=== PATIENT | male | born 1955 | race Caucasian/White ===

== ENCOUNTER 2023-05-23 08:49 | Day surgery (SDC) | payer BC ==
[~2023-05-23] VITALS: Ht 172.7 cm; Wt 84.0 kg
[2023-05-23] VITALS (9 sets, daily range): BP systolic 126–166; BP diastolic 69–88; PULSE 77–88; RESP 12–17; TEMP 98.3; O2SAT 94–99
[2023-05-23] MEDS ORDERED: ESOM40CA54 PO (10:00)
[2023-05-23] MEDS ORDERED: LOSA50TA64 PO (10:00)
[2023-05-23] MEDS ORDERED: TADA2.5T3 PO (10:00)
[2023-05-23] MEDS ORDERED: SEMA1PEN3 SQ (10:00)
[2023-05-23] MEDS ORDERED: GLIM4TAB7 PO (10:09)
[2023-05-23] MEDS ORDERED: ALBU90AE INH (10:09)
[2023-05-23] MEDS ORDERED: INSU100I29 SQ (10:09)
[2023-05-23] MEDS ORDERED: BUDE0.5A3 NEB (10:09)
[2023-05-23] MEDS ORDERED: ATOR40TA72 PO (10:09)
[2023-05-23] MEDS ORDERED: METF-900 PO (10:09)
[2023-05-23] MEDS ORDERED: METO-384 PO (10:09)
[2023-05-23] MEDS ORDERED: DAPA10TA PO (10:09)
[2023-05-23] MEDS ORDERED: FAMO-129 PO (10:09)
[2023-05-23] MEDS ORDERED: AZEL137S4 BOTHNARES (10:09)
[2023-05-23] MEDS ORDERED: ASPI81TA52 PO (10:09)
[2023-05-23] MEDS ORDERED: MONT-40 PO (10:09)
[2023-05-23 11:05] LABS: PROTHROMBIN TIME 11.2 SECONDS (9.0-12.0)
[2023-05-23 11:13] LABS: BASOPHILS % (AUTO) 0.3 % (0-1); EOSINOPHILS # (AUTO) 0.1 X10'3 (0-0.9); EOSINOPHILS % (AUTO) 1.4 % (0-6); HEMATOCRIT 40.7 % (42.0-52.0); HEMOGLOBIN 13.4 g/dl (14.0-17.9); LYMPHOCYTES # (AUTO) 1.4 X10'3 (1.1-4.8); LYMPHOCYTES % (AUTO) 21.8 % (21-51); MEAN CORPUSCULAR HGB CONC 32.9 g/dL (33.0-36.5); MEAN CORPUSCULAR VOLUME 88.3 FL (78-98); MEAN PLATELET VOLUME 7.9 FL (7.4-10.4); MONOCYTES # (AUTO) 0.6 X10'3 (0-0.9); MONOCYTES % (AUTO) 8.8 % (2-12); NEUTROPHILS # (AUTO) 4.3 X10'3 (1.8-7.7); NEUTROPHILS % (AUTO) 67.7 % (42-75); PLATELET COUNT 174 X10'3 (140-440); RED BLOOD COUNT 4.61 X10'6 (4.70-6.10); RED CELL DISTRIBUTION WIDTH 14.4 % (11.5-14.5); WHITE BLOOD COUNT 6.4 X10'3 (4.5-11.0)
[2023-05-23 11:51] LABS: ALBUMIN 3.5 G/DL (3.4-5.0); ANION GAP 8 (8-16); BLOOD UREA NITROGEN 13 MG/DL (7-18); BUN/CREATININE RATIO 19.7 (10.0-20.0); CALCIUM 8.1 MG/DL (8.5-10.1); CHLORIDE 108 MMOL/L (99-107); CREATININE 0.66 MG/DL (0.60-1.10); GLUCOSE 127 MG/DL (70-104); MAGNESIUM 2.1 MG/DL (1.5-2.4); POTASSIUM 3.9 MMOL/L (3.5-5.1); SODIUM 143 MMOL/L (135-145); TOTAL CARBON DIOXIDE 26.9 MMOL/L (24-32); eCRCL 104 ML/MIN; eGFR > 90 ML/MIN
[2023-05-23] MEDS: sodium bicarbonate 1meq/ml syr 150 ML in dextrose 5%-water 1,000 ML IV ONE (12:54)
[2023-05-23] MEDS: diphenhydrAMINE 25mg capsule PO PRN (12:54)
[2023-05-23] MEDS: normal saline 1,000 ML IV SCH (12:54)
[2023-05-23] MEDS ORDERED: LIDOcaine 1% (10mg/ml) 2ml vial ONE (13:32)
[2023-05-23] MEDS ORDERED: verapamil 2.5 mg/ml inj IV ONE (13:32)
[2023-05-23] MEDS ORDERED: LIDOcaine 1% 30ml preserv. free vial ONE (13:32)
[2023-05-23] MEDS ORDERED: heparin 1,000unit/ml 10ml vial 10 ML ONE (13:33)
[2023-05-23] MEDS ORDERED: iohexol 350 MG/ML 50ML vial IV ONE ×3 (13:33→14:32)
[2023-05-23] MEDS ORDERED: fentaNYL/PF 50MCG/1 ML 2ML syringe ONE ×3 (13:33→14:48)
[2023-05-23] MEDS ORDERED: iohexol 350MG/ML 100ml bottle IV ONE (13:33)
[2023-05-23] MEDS ORDERED: nitroGLYCERIN 500mcg/5mL D5W 5 ML IV ONE (13:33)
[2023-05-23] MEDS ORDERED: midazolam 1 mg/ML 2ml injection ONE ×4 (13:33→14:48)
[2023-05-23] MEDS ORDERED: ondansetron/PF 4mg/2ml inj IV PRN (15:35)
[2023-05-23] MEDS ORDERED: HYDROcodone/acetaminophen 10/325mg tab PO PRN (15:35)
[2023-05-23] MEDS ORDERED: proCHLORperazine 10 MG/2 ml inj IV PRN (15:35)
[2023-05-23] MEDS: clopidogrel 300mg tablet PO STA (15:46)
[2023-05-23] MEDS: HYDROcodone/acetaminophen 5mg/325mg tablet PO PRN (18:10)
== END 2023-05-23 18:50 | disposition home or self-care (01) ==
LOC: CATH LAB 08:49 → SSTAY O 18:50
PROVIDERS: ATTEND Internal Medicine Cardiovascular Disease
DX: I25.118 Atherosclerotic heart disease of native coronary artery with other forms of angina pectoris (principal); E78.5 Hyperlipidemia, unspecified; E11.9 Type 2 diabetes mellitus without complications; K21.9 Gastro-esophageal reflux disease without esophagitis; I10 Essential (primary) hypertension; Z95.5 Presence of coronary angioplasty implant and graft; Z79.899 Other long term (current) drug therapy; Z79.84 Long term (current) use of oral hypoglycemic drugs; Z88.5 Allergy status to narcotic agent; Z88.8 Allergy status to other drugs, medicaments and biological substances; Z88.2 Allergy status to sulfonamides
CPT/HCPCS: 36415; 80048; 82948; 83735; 85025; 85610; 92920; 93005; 93458; 99152; 99153; A6258; C1874; C9600; J1644; J2250; J3010; J3490; J7030; J7070; Q0163; Q9967; 96360; A6402; C1725; C1751; C1769; C1894; C9601

== ENCOUNTER 2024-09-20 06:46 | Day surgery (SDC) | payer BC ==
[2024-09-20] VITALS (9 sets, daily range): BP systolic 112–153; BP diastolic 60–83; PULSE 86–95; RESP 11–15; O2SAT 93–99
[~2024-09-20] VITALS: Ht 172.7 cm; Wt 84.8 kg
[~2024-09-20 06:46] MED LIST: ALBU90AE INH; ASPI81TA52 PO; ATOR40TA72 PO; AZEL137S4 BOTHNARES; BUDE0.5A3 NEB; DAPA10TA PO; ESOM40CA66 PO; FAMO-129 PO; GLIM4TAB7 PO; INSU100I29 SQ; LOSA50TA64 PO; METF-900 PO; METO-384 PO; MONT-40 PO; SEMA1PEN3 SQ; [UNRECOGNIZED DRUG - CODE] PO
--- NOTE | 2024-09-20 07:17 | ELECTROCARDIOGRAPH REPORT ---
[facility] Test Date: 2024-09-20 Test Time: 07:15:26 Pat Name: NEREIDA SCHMIDT Department: [facility] Patient ID: [id number] Room: Gender: M Electronic Publications Specialist: ALEXANDREA : 1955 Requested By: STACIA VILLAGRAN Order Number: [id number] Reading MD: Dr. CHEYENNE Ibarra Measurements Intervals [place] Rate: 71 P: 40 MD: 210 QRS: 37 QRSD: 86 T: 42 QT: 382 QTc: 416 Interpretive Statements Sinus rhythm Electronically Signed On 09-20-2024 9:13:[address] CHEYENNE Ibarra Please click the below link to view image of tracing.
[2024-09-20] MEDS ORDERED: METO-384 PO (07:27)
[2024-09-20] MEDS ORDERED: LOSA-416 PO (07:27)
[2024-09-20] MEDS ORDERED: [UNRECOGNIZED DRUG - CODE] PO (07:31)
[2024-09-20] MEDS ORDERED: ATRNS BOTHNARES (07:31)
[2024-09-20] MEDS ORDERED: TIRZ5PEN INJ (07:31)
[2024-09-20] MEDS ORDERED: PREG75CA76 PO (07:31)
[2024-09-20] MEDS ORDERED: DOCU100C40 PO (07:36)
[2024-09-20] MEDS ORDERED: ADMELOG (07:36)
[2024-09-20] MEDS ORDERED: DENO60DI SUBCUT (07:36)
[2024-09-20 08:12] LABS: BASOPHILS % (AUTO) 0.4 % (0-1); EOSINOPHILS # (AUTO) 0.1 X10'3 (0-0.9); EOSINOPHILS % (AUTO) 2.5 % (0-6); HEMATOCRIT 41.8 % (42.0-52.0); HEMOGLOBIN 13.6 g/dl (14.0-17.9); LYMPHOCYTES # (AUTO) 1.6 X10'3 (1.1-4.8); MEAN CORPUSCULAR HEMOGLOBIN 27.1 PG (27.0-31.0); MEAN CORPUSCULAR HGB CONC 32.6 g/dL (33.0-36.5); MEAN CORPUSCULAR VOLUME 83.1 FL (78-98); MEAN PLATELET VOLUME 7.5 FL (7.4-10.4); MONOCYTES # (AUTO) 0.6 X10'3 (0-0.9); MONOCYTES % (AUTO) 10.4 % (2-12); NEUTROPHILS # (AUTO) 3.6 X10'3 (1.8-7.7); NEUTROPHILS % (AUTO) 60.7 % (42-75); PLATELET COUNT 193 X10'3 (140-440); RED BLOOD COUNT 5.03 X10'6 (4.70-6.10); RED CELL DISTRIBUTION WIDTH 16.2 % (11.5-14.5)
[2024-09-20 08:20] LABS: ALBUMIN 3.8 G/DL (3.4-5.0); ANION GAP 6 (8-16); BLOOD UREA NITROGEN 11 MG/DL (7-18); BUN/CREATININE RATIO 12.6 (10.0-20.0); CALCIUM 8.7 MG/DL (8.5-10.1); CHLORIDE 107 MMOL/L (99-107); CREATININE 0.87 MG/DL (0.60-1.10); GLUCOSE 141 MG/DL (70-104); MAGNESIUM 2.5 MG/DL (1.5-2.4); POTASSIUM 3.9 MMOL/L (3.5-5.1); SODIUM 140 MMOL/L (135-145); TOTAL CARBON DIOXIDE 26.9 MMOL/L (24-32); eCRCL 76 ML/MIN; eGFR 87 ML/MIN
[2024-09-20 08:23] LABS: PROTHROMBIN TIME 10.6 SECONDS (9.0-12.0)
[2024-09-20] MEDS ORDERED: verapamil 2.5 mg/ml inj IV ONE (08:27)
[2024-09-20] MEDS ORDERED: fentaNYL/PF 50MCG/1 ML 2ML syringe ONE (08:27)
[2024-09-20] MEDS ORDERED: LIDOcaine 1% (10mg/ml) 2ml vial ONE (08:27)
[2024-09-20] MEDS ORDERED: iohexol 350 MG/ML 50ML vial IV ONE (08:27)
[2024-09-20] MEDS ORDERED: midazolam 1 mg/ML 2ml injection ONE ×3 (08:27→10:04)
[2024-09-20] MEDS ORDERED: iohexol 350MG/ML 100ml bottle IV ONE (08:28)
[2024-09-20] MEDS ORDERED: heparin 1,000unit/ml 10ml vial 10 ML ONE (08:28)
[2024-09-20] MEDS ORDERED: nitroGLYCERIN 500mcg/5mL D5W 5 ML IV ONE (08:37)
[2024-09-20] MEDS ORDERED: LIDOcaine 1% 30ml preserv. free vial ONE (09:13)
[2024-09-20] MEDS: normal saline 1,000 ML IV SCH (09:28)
[2024-09-20] MEDS: diphenhydrAMINE 25mg capsule PO PRN (09:28)
[2024-09-20] MEDS: sodium bicarbonate 1meq/ml syr 150 ML in dextrose 5%-water 1,000 ML IV ONE (09:28)
--- NOTE | 2024-09-20 10:03 | VASCULAR REPORT ---
Right lower extremity venous duplex Clinical History: Pain, swelling Comparison: None Technique: Duplex Doppler evaluation of the deep venous system of the right lower extremity from the common femo ral vein to the popliteal vein including color Doppler and spectral/pulsed waveform analysis was perf ormed. Findings: The common femoral vein demonstrates appropriate compressibility and waveform variability. There is compressibility/patency of the great saphenous vein at the proximal thigh. The femoral vein demonstrates appropriate compressibility and waveform variability. The deep femoral vein demonstrates appropriate compressibility and waveform variability. The popliteal vein demonstrates appropriate compressibility and waveform variability. There is normal compressibility at the tibioperoneal trunk. Impression: No right femoropopliteal venous thrombosis. Contralateral common femoral vein is patent.
--- NOTE | 2024-09-20 11:13 | CARDIOLOGY REPORT ---
DATE OF SERVICE: 09/20/2024 DICTATING PHYSICIAN: STACIA VILLAGRAN DO CARDIAC CATHETERIZATION REPORT REFERRING PHYSICIAN: Jo Vargas MD. CLINICAL HISTORY: This 69-year-old man is status post mid RCA stenting in 2019 and circumflex coronary stenting in 2023. He is having recurring episodes of chest pain, suggestive of angina. Symptoms have occurred at rest. PROCEDURES PERFORMED: * Left heart catheterization. * Left ventriculography. * Selective coronary arteriography. * Percutaneous arteriotomy closure (Perclose). * A 30-minute conscious sedation and supervision. * Incidentally Perclose. DESCRIPTION OF PROCEDURE: The patient was sedated with fentanyl and Versed. He was then prepared and draped in the usual manner. The right inguinal area was infiltrated with 1% lidocaine. Using a micropuncture set and a Seldinger technique, a 7-Chadian sheath was placed in the common femoral artery, 3,000 units of heparin were given. Left heart catheterization and left ventriculography were performed using a 6-Chadian pigtail catheter. Coronary arteriography was performed using a 6-Chadian #4 left Edilson catheter for the left coronary artery and a 6-Chadian AR2 catheter for the right coronary artery. The arterial puncture site was successfully Perclosed. RESULTS: HEMODYNAMIC DATA: The left ventricular end diastolic pressure was 13 mmHg. There was no significant gradient across the aortic valve. LEFT VENTRICULOGRAM: The left ventriculogram was technically satisfactory. The ejection fraction was at least 70%. A stent was visible in the main stem circumflex and in the mid right coronary. There was also moderate calcification in the proximal and mid LAD. LEFT MAIN CORONARY ARTERY: The left main was a large short vessel immediately bifurcating into left anterior descending and circumflex coronary arteries. LEFT ANTERIOR DESCENDING CORONARY ARTERY: The LAD was a medium-sized vessel with a transapical distribution. The more distal two-thirds was somewhat small in size, being no more than about 2 mm in diameter at most. There was a single medium to large diagonal that was bifurcated and took its origin from the mid LAD. The mid LAD contained about a 30-40% area of narrowing, but there were no high-grade stenoses in this vessel. CIRCUMFLEX CORONARY ARTERY: The circumflex was a large main stem vessel. There was a very small first and second obtuse marginal branches. The first obtuse marginal appeared to be narrowed by at least 80%, but its diameter is well below 2 mm in diameter. There was a large posterolateral branch. There were no obstructive lesions elsewhere in the circumflex other than the origin of very small caliber first obtuse marginal. RIGHT CORONARY ARTERY: The right coronary artery was a medium to large main stem vessel. There was a medium-sized posterior descending branch, a small first posterolateral, a small to medium-sized second posterolateral, and a small third posterolateral. A stent in the mid right coronary was widely patent and there were no new obstructive lesions in the right coronary artery. CONCLUSIONS: * No significant obstructive coronary artery disease; however, there is an 80% stenosis at the origin of an extremely small caliber first obtuse marginal branch of the circumflex. * A 30-40% mid LAD in a segment that is 2 mm in diameter or less. * Stents in the proximal circumflex and in the mid right coronary are widely patent. * Left ventricular function is normal. The estimated ejection fraction is at least 60%. RECOMMENDATIONS: Ongoing medical therapy. STACIA VILLAGRAN DO TID: [id number] RECEIPT: [id number] IZZY/FLY
[2024-09-20] MEDS ORDERED: ondansetron/PF 4mg/2ml inj IV PRN (11:20)
[2024-09-20] MEDS ORDERED: proCHLORperazine 10 MG/2 ml inj IV PRN (11:20)
== END 2024-09-20 14:00 | disposition home or self-care (01) ==
LOC: SSTAY O 06:46
PROVIDERS: ATTEND Internal Medicine Cardiovascular Disease
DX: I25.118 Atherosclerotic heart disease of native coronary artery with other forms of angina pectoris (principal); I10 Essential (primary) hypertension; E78.5 Hyperlipidemia, unspecified; E11.9 Type 2 diabetes mellitus without complications; K44.9 Diaphragmatic hernia without obstruction or gangrene; K21.9 Gastro-esophageal reflux disease without esophagitis; Z95.5 Presence of coronary angioplasty implant and graft; Z79.899 Other long term (current) drug therapy
CPT/HCPCS: 36415; 80048; 83735; 85025; 85610; 93005; 93458; 93971; 99152; 99153; C1760; J1644; J2003; J2250; J3010; J3490; J7030; J7070; Q0163; Q9967; A6258; C1894